=== PATIENT | female | born 1995 | race Hispanic/Latino ===

== ENCOUNTER 2023-01-31 11:47 | Inpatient (IN) | payer BC, OTHER ==
--- OUTSIDE RECORDS SUMMARY | ~2023-01-31 | XMS | Continuity of Care Document ---
Demographics + + + | Address | [address] | | | [place] [address] | + + + | Preferred Language | Unknown | + + + | Marital Status | Never | + + + | Amish Affiliation | Unknown | + + + | Race | Unknown | + + + | Ethnic Group | Unknown | + + + Author + + + | Author | [facility] | + + + | Organization | [facility] | + + + | Address | [address] | | | [place] [address] | + + + | Phone | | + + + Care Team Providers + + + + | [facility] Name | Role | Phone | + + + + Unavailable | Unavailable | + + + + Allergies No information. Encounters No information. Functional Status No information. Immunizations No information. Medications No information. Problems + + + + | date | description | facility | + + + + | 2022-06-07 08:49 | [facility] OF PREG WITH | [facility] | | | HISTORY OF ECTOPIC PREG, | | | | FIRST TRI | | + + + + | 2022-06-07 08:49 | LESS THAN 8 WEEKS | [facility] | | | GESTATION OF | | + + + + | 2022-09-15 15:03 | ENCOUNTER FOR SCREENING | [facility] | | | FOR MALIGNANT NEOPLASM OF | | | | CERVIX | | + + + + | 2022-09-15 15:03 | 20 WEEKS GESTATION OF | [facility] | | | | | + + + + | 2023-01-11 13:47 | UTERINE SIZE-DATE | [facility] | | | DISCREPANCY, UNSPECIFI | | + + + + | 2023-01-11 13:47 | UTERINE SIZE-DATE | [facility] | | | DISCREPANCY, UNSPECIFIED | | | | TRIMESTER | | + + + + | 2023-01-11 14:00 | UTERINE SIZE-DATE | [facility] | | | DISCREPANCY, UNSPECIFI | | + + + + Procedures No information. Results/Labs No information. Social History No information. Vital Signs No information."
--- NOTE | 2023-01-31 20:42 | PR ---
[facility] [address], [place] [address] Signed Progress Notes IP Datetime Report Generated by STEPHANY: 01/31/2023 20:42 PROGRESS NOTES: [id number] Impression: Normal Progression of Labor Procedures: Intrauterine Pressure Catheter; Scalp Electrode Plan: Continue Present Management VITAL SIGNS: [id number] Vital Signs: Reviewed; Within Normal Limits EXAM: [id number] Dilatation: 7.0 Effacement: 90 Station: -1 Contractions: occ MEMBRANES: [id number] Amniotic Fluid Color: Clear Comments: Progressing. Will place IUPC and FSE to closely monitor. Will continue position changes and will consider amnioinfusion if needed. FETUS A: [id number] FHR Baseline: 150 Variability: Moderate 6-25bpm Accelerations: 15X15 Decelerations: Variable FHR Category: Category II Presentation: Vertex Comments on Fetus A: no evidence of metabolic acidosis FETUS B: [id number] Signing Physician: Nahed Mitchell MD Copies: ~ *Electronically Signed* 01/31/232041 NAHED MITCHELL MD PATIENT NAME: TONI MENDEZ PROGRESS NOTE DATE OF : 97 PHYSICIAN: NAHED MITCHELL MD RPT #: [id number] REPORT IS CONFIDENTIAL AND NOT TO BE RELEASED WITHOUT AUTHORIZATION
--- NOTE | 2023-01-31 22:21 | PR ---
[facility] [address] [facility] [place], [place] [address] Signed Progress Notes IP Datetime Report Generated by CPN: 01/31/2023 22:21 PROGRESS NOTES: [id number] Impression: Normal Progression of Labor Procedures: Intrauterine Pressure Catheter; Scalp Electrode Plan: Continue Present Management VITAL SIGNS: [id number] Vital Signs: Reviewed; Within Normal Limits EXAM: [id number] Dilatation: 9.5 Effacement: 100 Station: -1 Contractions: occ MEMBRANES: [id number] Amniotic Fluid Color: Clear Comments: Continue extreme position changes FETUS A: [id number] FHR Baseline: 150 Variability: Moderate 6-25bpm Accelerations: 15X15 Decelerations: Variable FHR Category: Category II Presentation: Vertex Comments on Fetus A: no evidence of metabolic acidosis FETUS B: [id number] Signing Physician: Hailey Patten DO Copies: ~ *Electronically Signed* 01/31/232220 HAILEY PATTEN DO PATIENT NAME: TONI MENDEZ PROGRESS NOTE DATE OF : 97 PHYSICIAN: HAILEY PATTEN DO [facility] #: [id number] REPORT IS CONFIDENTIAL AND NOT TO BE RELEASED WITHOUT AUTHORIZATION
--- NOTE | 2023-01-31 22:59 | PR ---
[facility] [address] [place] [facility] [place] [address] Signed Progress Notes IP Datetime Report Generated by CPN: 01/31/2023 22:59 PROGRESS NOTES: [id number] Impression: Normal Progression of Labor Procedures: Intrauterine Pressure Catheter; Scalp Electrode Plan: Continue Present Management VITAL SIGNS: [id number] Vital Signs: Reviewed; Within Normal Limits EXAM: [id number] Dilatation: 9.5 Effacement: 95 Station: -1 Contractions: occ MEMBRANES: [id number] Amniotic Fluid Color: Clear Comments: Pt afebrile, T = 99.3. No further cervical change from last check - continue extreme position changes FETUS A: [id number] FHR Baseline: 150 Variability: Moderate 6-25bpm Accelerations: 15X15 Decelerations: Variable FHR Category: Category II Presentation: Vertex Comments on Fetus A: no evidence of metabolic acidosis FETUS B: [id number] Signing Physician: Hailey Patten DO Copies: ~ *Electronically Signed* 01/31/23 6151 HAILEY PATTEN DO PATIENT NAME: TONI MENDEZ PROGRESS NOTE DATE OF : 97 PHYSICIAN: HAILEY PATTEN DO RPT #: [id number] REPORT IS CONFIDENTIAL AND NOT TO BE RELEASED WITHOUT AUTHORIZATION
--- NOTE | 2023-02-02 08:34 | PR ---
[facility] [address] [facility] [place], [place] [address] Signed PP Progress Notes Datetime Report Generated by CPN: 02/02/2023 08:34 SUBJECTIVE: [id number] Vital Signs: [id number] IMPRESSION/PLAN/PROCEDURES: [id number] Progress Notes: PPD#1 s/p -doing well : ambulating, voiding, tolerating regular diet, +flatus, no BM yet. - well: had latch challenges yesterday but did well overnight, feeling more confident now -undecided re: contraception, never been on it before. Hgb 8.4 from 11.7, discussed iron infusion. Plt 148 from 146; lochia moderate. Denies dizziness or lightheadedness. Pt requesting DC to home, anticipate DC after iron infusion Signing Physician: Hailey Patten DO Copies: ~ *Electronically Signed* 02/02/2334 HAILEY PATTEN DO PATIENT NAME: TONI MENDEZ PROGRESS NOTE DATE OF : 97 PHYSICIAN: HAILEY PATTEN DO [facility] #: [phone] REPORT IS CONFIDENTIAL AND NOT TO BE RELEASED WITHOUT AUTHORIZATION
--- NOTE | 2023-02-02 08:37 | PR ---
[facility] [address] [facility] [place], [place] [address] Signed PP Progress Notes Datetime Report Generated by CPN: 02/02/2023 08:37 SUBJECTIVE: [id number] Pain: Within Normal Limits Nausea/Vomiting: Denies Flatus: Yes Bowel Movement: Yes Vital Signs: [id number] Vital Signs: Reviewed; Within Normal Limits Cardiovascular: Normal Respiratory: Normal Abdomen/Uterus: Normal Lochia: Normal Extremities: Normal Progress: Normal Exam Comments: NAD, sitting up in bed eating breakfast RRR No dyspnea/ retractions Abd SNTND FFBU Ext: trace edema neg Patrice's BL IMPRESSION/PLAN/PROCEDURES: [id number] Impression: Normal Progression Plan: Continue Present Management; Discharge Other Procedures: Iron infusion Progress Notes: see prior note (merge two) Signing Physician: Hailey Patten DO Copies: ~ *Electronically Signed* 02/02/23836 HAILEY PATTEN DO PATIENT NAME: SWANN TONI ARIAS PROGRESS NOTE DATE OF : 97 PHYSICIAN: HAILEY PATTEN DO [facility] #: [id number] REPORT IS CONFIDENTIAL AND NOT TO BE RELEASED WITHOUT AUTHORIZATION
--- NOTE | 2023-02-02 09:41 | NUR ---
PT IN BED FILLING OUT PAPERWORK. IN CHAIR WITH BABY. DENIED NEEDS. CONSTNEDTED TO PRAYER. PRAYED FOR GOOD BEGINNINGS AND ONGOING BLESSING.
== END 2023-02-02 17:45 | disposition home or self-care (01) | DRG 807 ==
LOC: FBCO 11:47 → FBC 12:00
PROVIDERS: ADMIT Obstetrics & Gynecology; ATTEND Obstetrics & Gynecology
PROC: 10E0XZZ Delivery of Products of Conception, External Approach (ICD-10-PCS; principal; 2023-02-01)
PROC: 0KQM0ZZ Repair Perineum Muscle, Open Approach (ICD-10-PCS; 2023-02-01)
PROC: 0W8NXZZ Division of Female Perineum, External Approach (ICD-10-PCS; 2023-02-01)
PROC: 0UQMXZZ Repair Vulva, External Approach (ICD-10-PCS; 2023-02-01)
PROC: 3E0R3BZ Introduction of Anesthetic Agent into Spinal Canal, Percutaneous Approach (ICD-10-PCS; 2023-02-01)
PROC: 00HU33Z Insertion of Infusion Device into Spinal Canal, Percutaneous Approach (ICD-10-PCS; 2023-02-01)
PROC: 10H07YZ Insertion of Other Device into Products of Conception, Via Natural or Artificial Opening (ICD-10-PCS; 2023-02-01)
DX: O42.02 Full-term premature rupture of membranes, onset of labor within 24 hours of rupture (principal); Z37.0 Single live birth; O76 Abnormality in fetal heart rate and rhythm complicating labor and delivery; O77.0 Labor and delivery complicated by meconium in amniotic fluid; O69.1XX0 Labor and delivery complicated by cord around neck, with compression, not applicable or unspecified; O70.1 Second degree perineal laceration during delivery; O90.81 Anemia of the puerperium; D64.9 Anemia, unspecified; Z3A.39 39 weeks gestation of pregnancy
CPT/HCPCS: 01960; 36415; 82803; 85027; 86850; 86900; 86901; A9270; J2590; J7121; Q0138

== ENCOUNTER 2024-02-22 06:10 | Inpatient (IN) | payer BC, OTHER ==
[~2024-02-22 06:10] MED LIST: CALCIUM CARBONATE 500 MG CHEW PO PRN; LACTATED RINGER'S 1,000 ML IV SCH; MAGNESIUM HYDROXIDE/AL HYDROX 30 ML CUP PO PRN
[2024-02-22] MEDS ORDERED: LACTATED RINGER'S 1,000 ML IV PRN (06:30)
[2024-02-22] MEDS ORDERED: LIDOCAINE 2% VISCOUS 6 ML SYR TOP ONE (06:30)
[2024-02-22] MEDS ORDERED: ondansetron HCL 4 MG/2 ML VIAL IV PRN (06:30)
[2024-02-22] MEDS ORDERED: OXYTOCIN/DEXTROSE 5% 20 UNITS/100 ML BAG IV SCH (06:30)
[2024-02-22 06:55] VITALS: BP 115/70
[2024-02-22 07:09] LABS: HEMATOCRIT 36.1 % (35.0-50.0); HEMOGLOBIN 12.6 g/dL (12.0-18.0); MCH 32.1 (27-36); MCHC 34.9 g/dl (30-36); RBC 3.93 M/ul (4.3-5.7); RDW 13.7 (10.5-15.0)
[2024-02-22 07:38] LABS: ABO O; ANTIBODY SCREEN NEGATIVE; RH POSITIVE
[2024-02-22] MEDS ORDERED: miSOPROStoL 25 MCG TAB PV ONE (08:00)
[2024-02-22 08:59] LABS: AMPHETAMINES, URINE NEGATIVE (NEGATIVE); BARBITURATES, URINE NEGATIVE (NEGATIVE); BENZODIAZEPINE, URINE NEGATIVE (NEGATIVE); CANNABINOID, URINE NEGATIVE (NEGATIVE); COCAINE, URINE NEGATIVE (NEGATIVE); ECSTASY, URINE NEGATIVE (NEGATIVE); FENTANYL, URINE NEGATIVE (NEGATIVE); METHADONE, URINE NEGATIVE (NEGATIVE); OPIATES, URINE NEGATIVE (NEGATIVE); OXYCODONE, URINE NEGATIVE (NEGATIVE); PHENCYCLIDINE, URINE NEGATIVE (NEGATIVE)
[2024-02-22] MEDS ORDERED: SALINE LOCK FLUSH 5 ML SYR IV SCH (09:00)
[2024-02-22 09:16] LABS: BUPRENORPHINE, URINE NEGATIVE (NEGATIVE)
--- NOTE | 2024-02-22 10:49 | PR ---
[facility] [address] [facility] [place], [place] [address] Signed Progress Notes IP Datetime Report Generated by CPJennifer: 02/22/2024 10:49 PROGRESS NOTES: [id number] Impression: Reassuring Heart Rate Procedures: Artificial ROM; Sterile Vag Exam Plan: Continue Present Management VITAL SIGNS: [id number] Vital Signs: Reviewed; Within Normal Limits EXAM: [id number] Dilatation: 3.0 Effacement: 70 Station: -2 Contractions: irregular MEMBRANES: [id number] Comments: Feeling ctx more. Will continue. FETUS A: [id number] FHR Baseline: 140 Variability: Moderate 6-25bpm Accelerations: 15X15 Decelerations: None FHR Category: Category I Presentation: Vertex Comments on Fetus A: no evidence of metabolic acidosis FETUS B: [id number] Signing Physician: Nahed Mitchell MD Copies: ~ *Electronically Signed* 02/22/24 1049 NAHED MITCHELL MD PATIENT NAME: SWANN TONI ARIAS PROGRESS NOTE DATE OF : 97 PHYSICIAN: NAHED MITCHELL MD RPT #: [id number] REPORT IS CONFIDENTIAL AND NOT TO BE RELEASED WITHOUT AUTHORIZATION
[2024-02-22] MEDS ORDERED: fentaNYL citrate 100 MCG/2 ML VIAL ONE (12:37)
[2024-02-22] MEDS ORDERED: ePHEDrine sulfate 5 MG/ML SYRINGE IV PRN (12:45)
[2024-02-22] MEDS ORDERED: LACTATED RINGER'S 500 ML IV PRN (12:45)
[2024-02-22] MEDS ORDERED: LACTATED RINGER'S 2,000 ML IV ONE (12:45)
[2024-02-22] MEDS ORDERED: ROPIVACAINE 0.2% 200 ML BAG EPIDURAL SCH (12:45)
[2024-02-22] MEDS ORDERED: OXYTOCIN/0.9 % SODIUM CHLORIDE 500 ML IV SCH (18:15)
[2024-02-22] MEDS ORDERED: MAGNESIUM HYDROXIDE/AL HYDROX 30 ML CUP PO PRN (18:15)
[2024-02-22] MEDS ORDERED: HYDROCORTISONE ACETATE 25 MG SUPP PR PRN (18:15)
[2024-02-22] MEDS ORDERED: OXYCODONE/APAP 5/325 TAB PO PRN (18:15)
[2024-02-22] MEDS ORDERED: BENZOCAINE 60 ML AEROSOL TOP PRN (18:15)
[2024-02-22] MEDS ORDERED: MAGNESIUM HYDROXIDE 30 ML UDC PO PRN (18:15)
[2024-02-22] MEDS ORDERED: WITCH HAZEL/GLYCERIN 1 EA PAD TOP PRN (18:15)
[2024-02-22] MEDS ORDERED: HYDROCODONE/ACETA 5/325 TAB PO PRN (18:15)
[2024-02-22] MEDS ORDERED: CALCIUM CARBONATE 500 MG CHEW PO PRN (18:15)
[2024-02-22] MEDS ORDERED: ACETAMINOPHEN 325 MG TAB PO PRN (18:15)
[2024-02-22] MEDS ORDERED: IBUPROFEN 600 MG TAB PO PRN (18:15)
[2024-02-22] MEDS ORDERED: OXYCODONE HCL 5 MG TAB PO PRN (18:15)
[2024-02-22] MEDS ORDERED: SENNOSIDES/DOCUSATE 1 EA TAB PO SCH (21:00)
[2024-02-23 05:17] LABS: HEMATOCRIT 34.7 % (35.0-50.0); MCHC 34.5 g/dl (30-36); RBC 3.76 M/ul (4.3-5.7)
[2024-02-23 05:21] LABS: MCH 31.9 (27-36); MCV 92.4 fl (81-99); RDW 13.9 (10.5-15.0)
--- NOTE | 2024-02-23 07:32 | PR ---
[facility] [address] [facility] [place], [place] [address] Signed PP Progress Notes Datetime Report Generated by CPN: 02/23/2024 07:32 SUBJECTIVE: [id number] Pain: Within Normal Limits Vital Signs: [id number] Vital Signs: Reviewed; Within Normal Limits Cardiovascular: Not Done Respiratory: Not Done Abdomen/Uterus: Abnormal Lochia: Normal Vulva/Perineum: Not Done Breasts: Not Done CVA Tenderness: Not Done Extremities: Normal Incision: Not Applicable Progress: Normal Exam Comments: Fundus firm, NT @ U-1. H/H 12/34.7, WBC 9.3, Plat 169k IMPRESSION/PLAN/PROCEDURES: [id number] Impression: Normal Progression Plan: Discharge Procedures: None Progress Notes: Doing well. She would like D/C today. Signing Physician: Nahed Mitchell MD Copies: ~ *Electronically Signed* 02/23/24731 NAHED MITCHELL MD PATIENT NAME: SHARRON MENDEZCASTILLO PROGRESS NOTE DATE OF : 97 PHYSICIAN: NAHED MITCHELL MD RPT #: [id number] REPORT IS CONFIDENTIAL AND NOT TO BE RELEASED WITHOUT AUTHORIZATION
== END 2024-02-23 16:00 | disposition home or self-care (01) | DRG 807 ==
LOC: FBC 06:10 → FBCO 16:04 → EDSTATUS 16:12 → FBC 02-23 16:00
PROVIDERS: ADMIT Obstetrics & Gynecology; ATTEND Obstetrics & Gynecology
PROC: 10E0XZZ Delivery of Products of Conception, External Approach (ICD-10-PCS; principal; 2024-02-22)
PROC: 0KQM0ZZ Repair Perineum Muscle, Open Approach (ICD-10-PCS; 2024-02-22)
PROC: 3E0R3BZ Introduction of Anesthetic Agent into Spinal Canal, Percutaneous Approach (ICD-10-PCS; 2024-02-22)
PROC: 00HU33Z Insertion of Infusion Device into Spinal Canal, Percutaneous Approach (ICD-10-PCS; 2024-02-22)
PROC: 10907ZC Drainage of Amniotic Fluid, Therapeutic from Products of Conception, Via Natural or Artificial Opening (ICD-10-PCS; 2024-02-22)
DX: O48.0 Post-term pregnancy (principal); Z37.0 Single live birth; O76 Abnormality in fetal heart rate and rhythm complicating labor and delivery; O70.1 Second degree perineal laceration during delivery; Z3A.41 41 weeks gestation of pregnancy
CPT/HCPCS: 01960; 36415; 80307; 85027; 86850; 86900; 86901; A9270; J2590; J3010; J7121